=== PATIENT | female | born 1955 | race Caucasian/White ===

== ENCOUNTER 2016-12-02 12:30 | Inpatient (IN) ==
[2016-12-02] MEDS ORDERED: Naloxone 0.4 MG/ML INJ IVP PRN (16:48)
[2016-12-02] MEDS ORDERED: Acetaminophen 325 MG TABLET PO PRN (16:48)
--- NOTE | 2016-12-02 18:01 | Internal Med History&Physical ---
Date of Encounter: 12/02/16 Time of Encounter: 16:15 Assessment and Plan (1) TIA (transient ischemic attack) Current visit: Yes Status: Acute Patient has dizziness, ataxia, left-sided weakness, superior gaze palsy. SHe likely has underlying posterior circulation CVA vs spinal cord lesion. Check stat MRI brain; check bilateral carotid Doppler and 2-D echocardiogram. Continue aspirin and statin. Check lipid profile and hemoglobin A1c. Monitor vital signs closely. Neurology consulted by emergency room physician, pending evaluation. Continue telemetry monitoring and cycle troponins. Physical and occupational therapy evaluation. Qualifiers: Transient cerebral ischemia type: unspecified Qualified Code(s): G45.9 - Transient cerebral ischemic attack, unspecified (2) Essential hypertension Current visit: Yes Status: Chronic Blood pressure well controlled at this time. Resume home medications as needed; (3) Diabetes mellitus Current visit: Yes Status: Chronic Continue Accu-Chek blood glucose monitoring with sliding scale insulin as needed. Diabetic diet. Qualifiers: Diabetes mellitus type: type 2 Diabetes mellitus complication status: with unspecified complications Diabetes mellitus alf insulin use: without alf use Qualified Code(s): E11.8 - Type 2 diabetes mellitus with unspecified complications (4) Hyperlipidemia Current visit: Yes Status: Chronic Continue statin. Check lipid profile. Qualifiers: Hyperlipidemia type: unspecified Qualified Code(s): E78.5 - Hyperlipidemia , unspecified Internal Medicine - H&P: HPI Chief complaint: Dizziness, left-sided weakness Admitted From: Emergency Dept Plans for Post Hospital Care: Transfer Inp Rehab Fac History of present illness: Ms. Ruiz is a 61 year old female with history of hypertension and diabetes, remote history of Meniere's disease presents to emergency room at [facility] with complaints of dizziness for 2 days, worse since waking up this morning around 4: 30 AM. Patient did go to work but gradually also developed right arm pain and paresthesia with numbness and heaviness associated with gait ataxia and worsening dizziness. She subsequently presented to the emergency room where she also developed left-sided weakness in her upper and lower extremities, approximately around 8:30 AM this morning. She reports no headache, blurred vision, dysphagia but she does have intermittent word finding difficulty and is unable to look up in both her eyes. She reports no chest pain, dyspnea, vomiting, diarrhea or abdominal pain but she does have some nausea. No prior episodes of stroke or similar symptoms. Past Med Surg Social Fam HX - Past Medical History Medical history: diabetes, hypertension Psychiatric history: anxiety, depression - Past Surgical History Surgical History: breast surgery, cholecystectomy, hysterectomy - Social History Smoking Status: Never smoker Smokeless Tobacco Status: No Alcohol use: none Drug use: none Occupational status: employed Current living situation: Home, With Family Activity Level: Independent ambulation Recent Out of Country Travel Within the Last 8 Weeks: No Exposure or Possible Exposure to Illness During Travel: No - Family History Mother Living Status: Hx Family Cardiac Disorders: Yes (CHF, HTN) Hx Family Cancer: Yes Hx Family Endocrine Disorder: Yes (DM) Sister Hx Family Cardiac Disorders: Yes Hx Family Cancer: Yes Hx Family Endocrine Disorder: Yes Hx Family Neurologic Disorders: Yes Internal Medicine - H&P: Meds Citalopram [CeleXA] 20 mg PO DAILY #30 tablet 09/05/15 [Rx] Aspirin 81 mg PO DAILY 07/16/16 [History] Atorvastatin [Lipitor] 40 mg PO HS 07/16/16 [History] Lisinopril/Hydrochlorothiazide [Zestoretic 20-12.5 mg Tablet] 2 tab PO DAILY [History] Mv-Mn/FA/Vit K/Lycop/Lut/Coq10 [Daily Multivitamin Capsule] 1 each PO DAILY [History] Omeprazole [PriLOSEC] 20 mg PO DAILY 07/16/16 [History] Pioglitazone [Actos] 45 mg PO 0800 07/16/16 [History] amLODIPine [Norvasc] 5 mg PO DAILY 07/16/16 [History] glipiZIDE [Glipizide] 10 mg PO DAILY 07/16/16 [History] Cholecalciferol (Vitamin D3) [Vitamin D3] 5,000 unit PO BID 12/02/16 [History] [place]-3/Dha/Epa/Fish Oil [Fish Oil 1,000 mg Softgel] 1,000 mg PO DAILY 12/02/16 [History] hydrOXYzine pamoate [HydrOXYzine Pamoate] 25 mg PO DAILY 12/02/16 [History] 3 Allergy/AdvReac Type Severity Reaction Status Date / Time No Known Allergies Allergy Verified 07/16/16 07:42 All Systems PM: A 10-system review of systems was performed and is negative for pertinent findings except as documented above in the HPI. - Constitutional Constitutional: no chills, no fever(s), no night sweats - EENT Eyes: no change in vision, no discharge, no pain, no photophobia Ears: no ear discharge, no ear pain, no tinnitus Nose, mouth and throat: no dysphagia, no nasal discharge, no neck pain, no sore throat - Cardiovascular Cardiovascular ROS IM: lightheadedness - Respiratory Respiratory: no cough, no dyspnea, no wheezing, no excessive phlegm production - Gastrointestinal Gastrointestinal: nausea - Genitourinary Genitourinary: no change in urinary stream, no dysuria, no flank pain, no hematuria - Musculoskeletal Musculoskeletal ROS IM: no numbness, no tingling - Integumentary Integumentary IM: no rash, no unusual bruising - Neurological Neurological ROS: abnormal gait, disequilibrium, dizziness, focal weakness, numbness, paresthesias - Hematologic/Lymphatic Hematologic/Lymphatic: no easy bruising - Constitutional Vitals: Temp Pulse Resp BP Pulse Ox 98.1 F 60 12 146/75 97 12/02/16 14:35 12/02/16 14:35 12/02/16 14:35 12/02/16 14:35 12/02/16 14:35 General appearance: Present: A&O X 3, answers questions appropriately - Eye Eye exam: Present: EOMI (Bilateral superior gaze palsy), PERRL, conjuntiva pink , sclera anicteric Pupils: Present: PERRL - Respiratory Respiratory exam: Present: CTAB. Absent: accessory muscle use, rales, rhonchi, wheezes - Cardiovascular Cardiovascular exam: Present: RRR, +S1, +S2. Absent: diastolic murmur, gallop, rubs, systolic murmur - GI/Abdominal GI/Abdominal exam: Present: normal bowel sounds, soft, no peritoneal signs. Absent: distended, tenderness - Extremities Exam Extremities exam: Present: warm, radial pulses palpable and symmetrical. Absent : calf tenderness, cyanotic, pedal edema - Neurological Exam Neurological exam: Present: abnormal gait, CN II-XII intact, oriented X3, no focal deficits (Left lower extremity 0-1 over 5, left upper extremity 4 over 5 motor power. Right upper extremity 4 over 5, right lower extremity 5 over 5 motor power.). Absent: pronater drift, facial droop, speech deficit Additional comments: Hyperactive knee jerks bilaterally. Hyperactive triceps and biceps reflex on left side. - Skin Skin exam: Present: dry, intact Internal Med - H&P Results - Labs Labs: Cardiac Enzymes 12/02/16 Range/Units 17:09 Troponin I 0.00 (0-0.03) ng/mL - EKG Data -: EKG Interpreted by Myself EKG shows normal: sinus rhythm Rate: normal
[2016-12-02] MEDS ORDERED: *HR* LORazepam 1 MG TABLET PO ONE (18:07)
[2016-12-03 04:01] LABS: Bilirubin,Urine Negative (Negative); Blood,Urine Negative (Negative); Clarity,Urine Clear (Clear); Color,Urine Yellow (Yellow); Glucose,Urine (UA) >=1000 mg/dL (Normal); Ketones,Urine Negative (Negative); Leukocyte Esterase,Urine Negative (Negative); Nitrite,Urine Negative (Negative); Protein,Urine Negative (Neg-Trace); Specific Gravity,Urine 1.026 (1.010-1.025); Urobilinogen,Urine Normal (Normal)
[2016-12-03 05:51] LABS: Basophils # 0.1 K/mcL (0.0-0.2); Basophils % 0.9 %; Eosinophils # 0.4 K/mcL (0.0-0.6); Eosinophils % 5.2 %; Hematocrit 38.8 % (35.3-44.9); Hemoglobin 12.3 g/dL (11.5-15.4); Immature Granulocytes % 0.3 % (0-4); Immature Platelets 3.6 % (1.1-6.1); Lymphocytes # 2.6 K/mcL (0.6-4.6); Lymphocytes % 34.6 %; Mean Corpuscular HGB Conc 31.7 g/dL (31.6-35.5); Mean Corpuscular Hemoglobin 28.9 pg (28.0-33.3); Mean Corpuscular Volume 91.1 fL (83.0-100.0); Mean Platelet Volume 10.5 fL (9.4-12.4); Monocytes # 0.5 K/mcL (0.0-1.3); Monocytes % 7.1 %; Platelet Count 247 K/mcL (140-400); Red Blood Count 4.26 M/mcL (3.82-4.97); Red Cell Distribution Width 13.1 % (11.5-14.5); Segmented Neutrophils % 51.9 %
[2016-12-03 06:06] LABS: BUN/Creatinine Ratio 22 (6-26); Blood Urea Nitrogen 22 mg/dL (7-20); Calcium 9.4 mg/dL (8.6-10.8); Carbon Dioxide 25 mEq/L (19-29); Chloride 103 mEq/L (98-109); Chol/HDL Ratio 4.8 (0-4.9); Cholesterol 206 mg/dL (< 200); Glucose 220 mg/dL (70-99); HDL Cholesterol 43 mg/dL (40-59); LDL Cholesterol,Calculated 107 mg/dL (0-99); Osmolality,Calculated 296 (280-300); Potassium 4.4 mEq/L (3.5-4.5); Sodium 138 mEq/L (136-145); Triglycerides 282 mg/dL (< 150); eGFR For African Americans > 60 (> 60); eGFR For Non-African Americans 56 (> 60)
[2016-12-03] MEDS ORDERED: Lisinopril-HCTZ 20-12.5mg TABLET PO SCH (13:00)
[2016-12-03] MEDS: *HR* Pioglitazone 45 MG TABLET PO SCH (14:35)
[2016-12-03] MEDS: amLODIPine 5 MG TABLET PO SCH (14:35)
[2016-12-03] MEDS: *HR* GlipiZIDE 5 MG TABLET PO SCH (14:35)
--- NOTE | 2016-12-03 14:53 | Carotid Imaging Report ---
Carotid Duplex Patient Name:Courtney Ruiz Order Number:[id number] Procedure Date:12/02/2016 Date:1955ge:61 yrs Gender:Female Lt BP:148 / 80 mmHg Rt.BP:146 / 75 mmHgHeart Rate: Location:[facility] Room #: 2NE30 Gin Operator:Emperatriz Mason RDCS Referring MD:Lexii Maldonado MD gamma facilities operator:None Reading MD:Nick Davis MD Primary Indications:Left side weakness, Dizziness Risk Factors Yes/No Hypertension Yes Diabetes Yes Diabetes Yes Impressions: The right carotid artery is normal throughout. The left carotid artery has minimal plaque throughout. Recommendations: After imaging the patient returned to their room. Findings Carotid Duplex: Right: The right proximal common carotid artery has a PSV of 120 cm/s and a EDV of 23 cm/s. The right mid common carotid artery has a PSV of 106 cm/s and a EDV of 30 cm/s. The right distal common carotid artery has a PSV of 90 cm/s and a EDV of 26 cm/s. The right bifurcation has a PSV of 77 cm/s and a EDV of 24 cm/s. The right proximal internal carotid artery has a PSV of 93 cm/s and a EDV of 37 cm/s. The right mid internal carotid artery has a PSV of 80 cm/s and a EDV of 36 cm/s. The right distal internal carotid artery has a PSV of 122 cm/s and a EDV of 42 cm/s. The right eca has a PSV of 143 cm/s and a EDV of 14 cm/s. The right vertebral artery has a PSV of 71 cm/s and a EDV of 20 cm/s. Left: The left proximal common carotid artery has a PSV of 109 cm/s and a EDV of 22 cm/s. The left mid common carotid artery has a PSV of 97 cm/s and a EDV of 24 cm/s. There is nonstenotic plaque in the left distal common carotid artery with a PSV of 74 cm/s and a EDV of 24 cm/s. There is smooth plaque. The left bifurcation has a PSV of 86 cm/s and a EDV of 21 cm/s. The left proximal internal carotid artery has a PSV of 78 cm/s and a EDV of 21 cm/s. The left mid internal carotid artery has a PSV of 115 cm/s and a EDV of 41 cm/s. The left distal internal carotid artery has a PSV of 124 cm/s and a EDV of 48 cm/s. The left eca has a PSV of 109 cm/s and a EDV of 13 cm/s. The left vertebral artery has a PSV of 77 cm/s and a EDV of 20 cm/s. Prior Study: No prior study available for comparison. Carotid Results Right PSV EDV Assessment Proximal CCA 120 23 Mid CCA 106 30 Distal CCA 90 26 Bifurcation 77 24 Proximal ICA 93 37 Mid ICA 80 36 Distal ICA 122 42 ECA 143 14 Vertebral Artery 71 20 Antegrade Flow Left PSV EDV Assessment Proximal CCA 109 22 Mid CCA 97 24 Distal CCA 74 24 Non Stenotic Plaque Bifurcation 86 21 Proximal ICA 78 21 Mid ICA 115 41 Distal ICA 124 48 ECA 109 13 Vertebral Artery 77 20 Antegrade Flow Ratio's Right ICA/CCA Ratio: 1.15 ICA/CCA Values: 122/106 Left ICA/CCA Ratio: 1.27 ICA/CCA Values: 124/97 Updated by Nick Davis MD on 12/03/2016 2:46:59 PM electronically signed on 12/03/2016 2:47:35 PM with status of Final
--- NOTE | 2016-12-03 15:52 | Internal Med Progress Note ---
Date of Encounter: 12/03/16 Time of Encounter: 15:49 - Assessment and plan (1) Left leg weakness Current Visit: Yes Status: Acute Assessment and plan: She did have Rt arm, Left arm and Left leg weakness y/d Rt arm weakness better today.. Still has mild weakness in Left arm Severe weakness in Left leg MRI of brain - negative for infractions With here presentation I am concerned for any encephalopathy / neuro myelitis - especially with here recent visit to [facility] Ordered LP for CSF analysis Sent for CSF lyme titer, culture, [place] virus, Echo virus, HSV, VDRL, Glucose, Protien and analysis Waiting on Neuro evaluation ID is not available till Tuesday Consulted IR / Radiology for LP Will check ESR and CRP too No signs of meningitis No sings of bacterial infection No need of isolation cont close monitoring cont supportive Patient does need to stay in the hospital more than 2 midnights due to her complex medical problems. So we will change her to full admission today. I did review my colleague's H & P including HPI, PMH, PSH, FH, SH, and ROS no changes noticed (2) Essential hypertension Current Visit: Yes Status: Chronic Assessment and plan: Hold Lisinopril and HCTZ today due to slightly low BP (3) Diabetes mellitus Current Visit: Yes Status: Chronic Assessment and plan: Resumed home medications Qualifiers: Diabetes mellitus type: type 2 Diabetes mellitus complication status: with unspecified complications Diabetes mellitus detention insulin use: without detention use Qualified Code(s): E11.8 - Type 2 diabetes mellitus with unspecified complications (4) Hyperlipidemia Current Visit: Yes Status: Chronic Assessment and plan: on statin Qualifiers: Hyperlipidemia type: unspecified Qualified Code(s): E78.5 - Hyperlipidemia , unspecified - Subjective Interval history: Ms. Ruiz is a 61 year old female with history of hypertension and diabetes, remote history of Meniere's disease presents to emergency room at [facility] with complaints of dizziness for 2 days, worse since waking up this morning around 4: 30 AM. Patient did go to work but gradually also developed right arm pain and paresthesia with numbness and heaviness associated with gait ataxia and worsening dizziness. She subsequently presented to the emergency room where she also developed left-sided weakness in her upper and lower extremities, approximately around 8:30 AM this morning. She reports no headache, blurred vision, dysphagia but she does have intermittent word finding difficulty. Now she is more alert, awake and O x 3. Denied any CP / SOB. Denied any Abd pain , no nausea / vomiting. No speech difficulty. Still has severe left leg weakness. Unable to move. She did mention that she went to [employer] a week ago, while she was there, she had 2 days of severe SOB, but denied any bug bites / rash. - Constitutional Vitals: Temp Pulse Resp BP Pulse Ox 98.1 F 73 17 120/54 98 12/03/16 12:00 12/03/16 14:37 12/03/16 12:00 12/03/16 14:37 12/03/16 12:00 General appearance: Present: A&O X 3, answers questions appropriately - Head Head exam: Present: atraumatic, normal inspection - Neck Neck exam general surgery: Present: full ROM, normal inspection, supple. Absent : lymphadenopathy, tenderness, nuchal rigidity - Respiratory Respiratory exam: Present: CTAB. Absent: accessory muscle use, rales, rhonchi, wheezes - Cardiovascular Cardiovascular exam: Present: RRR, +S1, +S2. Absent: diastolic murmur, gallop, rubs, systolic murmur - GI/Abdominal GI/Abdominal exam: Present: normal bowel sounds, soft. Absent: rebound, rigid, tenderness - Extremities Exam Extremities exam: Absent: calf tenderness, pedal edema, tenderness - Neurological Exam Neurological exam: Present: abnormal gait, alert, CN II-XII intact, motor sensory deficit, oriented X3, pronater drift (left leg). Absent: facial droop, speech deficit - Psychiatric Psychiatric exam: Present: normal affect, normal mood Internal Medicine: Result - Labs CBC & Chem 7: 12/03/16 05:43 12/03/16 05:43 Labs: Short CBC 12/03/16 Range/Units 05:43 WBC 7.6 (4.3-11.1) K/mcL Hgb 12.3 (11.5-15.4) g/dL Hct 38.8 (35.3-44.9) % Plt Count 247 (140-400) K/mcL Neutrophils # 4.0 (1.6-8.9) K/mcL BMP 12/03/16 05:43 Sodium 138 Potassium 4.4 Chloride 103 Carbon Dioxide 25 BUN 22 H Creatinine 1.01 Glucose 220 H Calcium 9.4 Cardiac Enzymes 12/02/16 12/02/16 12/03/16 Range/Units 17:09 23:41 05:43 Troponin I 0.00 0.00 0.01 (0-0.03) ng/mL Urine 12/03/16 Range/Units 03:50 Urine Color Yellow (Yellow) Urine Clarity Clear (Clear) Urine pH 6.0 (5.0-8.0) pH Units Ur Specific [place] 1.026 H (1.010-1.025) Urine Protein Negative (Neg-Trace) mg/dL Urine Glucose (UA) >=1000 H (Normal) mg/dL - Impressions Impressions Brain MRI 12/02/16 16:51 IMPRESSION: No acute infarct. D/ / Jaylan Smith MD / Jaylan Smith MD Interpreting Provider: Jaylan Smith MD - VTE Documentation of Mechanical Device: Intermittent pneumatic compression device Consult Discharge Plan - Plan Referrals: NONE,PCP [Primary Care Provider] -
--- NOTE | 2016-12-03 15:56 | Electrocardiograph Report ---
[place] [id number] Test Date: 2016-12-02 Pat Name: Courtney Ruiz Department: 111 Room: [facility] Gender: F Web Publisher: ISMA : 1955 Requested By: Rocky العلي Order Number: [id number] Reading MD: Bre Guzmán Measurements Intervals [place] Rate: 65 P: -19 [place]: 165 QRS: 48 QRSD: 120 T: 37 QT: 431 QTc: 442 Interpretive Statements SINUS RHYTHM MODERATE INTRAVENTRICULAR CONDUCTION DELAY Electronically Signed On 12-03-2016 15:54:43 EDT by Bre Guzmán
[2016-12-03 17:05] LABS: Prothrombin Time 10.2 Seconds (9.4-12.1)
--- NOTE | 2016-12-03 17:54 | Neurology - Consult Note ---
Date of Encounter: 12/03/16 Time of Encounter: 17:50 Assessment and Plan (1) TIA (transient ischemic attack) Current Visit: Yes Status: Acute 61 year old woman with HTN, DM, hyperlipidemia who developed acute onset of dizziness right arm paresthesia, then left sided weakness with rapid improvement but with still left sided residual weakness, negative MRI of brain for acute stroke. Likely related to new onset of focal neurological deficits secondary to elevated BP, or hyperglycemia. However, the presence of continued left leg weakness is difficult to explain and it is not associated with any lumbar radicular type of pain. The examination of left leg weakness showed some functional component in my opinion but due to the fact that she has long standing DM and yet her DTRs are brisk, it would be necessary to get MRI of cervical spine to assess possible cervical myelopathy with long tract involvement. Agree with TIA work up including Echo, carotid artery dupplex. Continue medical and supportive care. Qualifiers: Transient cerebral ischemia type: unspecified Qualified Code(s): G45.9 - Transient cerebral ischemic attack, unspecified History of Present Illness Chief complaint: dizzness, left sided weakness HPI: Ms. Ruiz is a 61 year old female with PMH significant for DM, HTN, obesity, hyperlipidemia, who developed acute onset of dizziness, and left sided weakness. Symptoms started yesterday when she woke up she felt dizzy, never had similar symptoms in the past. She managed to go to work and there she developed right arm numbness, and then the left arm and leg felt numb and heavy. The dizziness slowly resolved today, so as the right arm numbness but she still has left sided weakness. She was initially evaluated at [facility] and transferred here for further evaluation. Her BP was elevated at [facility] 180s/97. She denies headaches, no fever and no neck pain. Has some chronic urinary urgency. Past Med Surg Social Fam HX - Past Medical History Medical history: diabetes, hypertension Psychiatric history: anxiety, depression - Past Surgical History Surgical History: breast surgery, cholecystectomy, hysterectomy - Social History Smoking Status: Never smoker Smokeless Tobacco Status: No Alcohol use: none Drug use: none - Family History Mother Living Status: Hx Family Cardiac Disorders: Yes (CHF, HTN) Hx Family Cancer: Yes Hx Family Endocrine Disorder: Yes (DM) Sister Hx Family Cardiac Disorders: Yes Hx Family Cancer: Yes Hx Family Endocrine Disorder: Yes Hx Family Neurologic Disorders: Yes Medications and Allergies Citalopram [CeleXA] 20 mg PO DAILY #30 tablet 09/05/15 [Rx] Aspirin 81 mg PO DAILY 07/16/16 [History] Atorvastatin [Lipitor] 40 mg PO HS 07/16/16 [History] Lisinopril/Hydrochlorothiazide [Zestoretic 20-12.5 mg Tablet] 2 tab PO DAILY [History] Mv-Mn/FA/Vit K/Lycop/Lut/Coq10 [Daily Multivitamin Capsule] 1 each PO DAILY [History] Omeprazole [PriLOSEC] 20 mg PO DAILY 07/16/16 [History] Pioglitazone [Actos] 45 mg PO 0800 07/16/16 [History] amLODIPine [Norvasc] 5 mg PO DAILY 07/16/16 [History] glipiZIDE [Glipizide] 10 mg PO DAILY 07/16/16 [History] Cholecalciferol (Vitamin D3) [Vitamin D3] 5,000 unit PO BID 12/02/16 [History] [place]-3/Dha/Epa/Fish Oil [Fish Oil 1,000 mg Softgel] 1,000 mg PO DAILY 12/02/16 [History] hydrOXYzine pamoate [HydrOXYzine Pamoate] 25 mg PO DAILY 12/02/16 [History] 3 Allergy/AdvReac Type Severity Reaction Status Date / Time No Known Allergies Allergy Verified 07/16/16 07:42 All Systems: A 10-system review of systems was performed and is negative for pertinent findings except as documented above in the HPI. Physical Examination - Vital Signs Vital Signs: Initial Vital Signs Temp Pulse Resp BP Pulse Ox 98.1 F 60 12 146/75 97 12/02/16 14:35 12/02/16 14:35 12/02/16 14:35 12/02/16 14:35 12/02/16 14:35 - Constitutional General appearance: comfortable - Neurologic Sensorimotor examination: intact Detailed motor examination: other (No drift noted to her arms. Left leg is weak but examination of her leg strength NOT Reliable. She would not be able to lift the leg up whole lot but able to keep if just off the bed with significant stiffness, when trying to lift her left leg up she pushes it downward) Motor examination - right side: 5/5: deltoids, biceps, triceps, wrist flexion, wrist extension, sheet folder, hip flexors, tibialis Anterior, quadriceps, toe extension (EHL), plantarflexion Motor examination - left side: 4/5: hip flexors (not reliable), quadriceps, tibialis Anterior, toe extension (EHL), plantarflexion, 5/5: deltoids, biceps, triceps, wrist flexion, wrist extension, sheet folder Detailed sensory examination: intact Posture: other (None. No nuchal rigidity) Reflexes: Biceps: 3+, Triceps: 3+, Brachioradialis: 3+, Patella: 3+, Achilles: 0 Mental Status Examination: awake, alert, oriented to person, oriented to place, oriented to time, follows commands appropriately, answers questions appropriately, no agnosia, no aphasia, no aproxia Cranial nerve examination: PERRL, EOMI, visual navarrete intact, corneal reflexes brisk symmetrically, sensory to face intact, mastication intact, no facial asymmetry is present, no dysarthria, hearing is intact symmetrically, soft palate elevates bilaterally upon phonation, gag reflex intact, flexes SCM and trapezius muscles symmetrically with full power, tongue protrudes midline, no atrophy or facial fasiculations present Results - Laboratory Findings CBC and BMP: 12/03/16 05:43 12/03/16 05:43 Abnormal lab findings: Abnormal lab results ESR 32 mm/hr (0-15) H 12/03/16 16:43 BUN 22 mg/dL (7-20) H 12/03/16 05:43 Est GFR (Non-Af Amer) 56 (> 60) L 12/03/16 05:43 Glucose 220 mg/dL (70-99) H 12/03/16 05:43 POC Glucose 300 (58-89) H 12/03/16 16:25 C-Reactive Protein 8 mg/L (Less than 5) H 12/03/16 16:43 Triglycerides 282 mg/dL (< 150) H 12/03/16 05:43 Cholesterol 206 mg/dL (< 200) H 12/03/16 05:43 LDL Cholesterol, Calc 107 mg/dL (0-99) H 12/03/16 05:43 VLDL Cholesterol, Calc 56 mg/dL (< 31) H 12/03/16 05:43 Ur Specific [place] 1.026 (1.010-1.025) H 12/03/16 03:50 Urine Glucose (UA) >=1000 mg/dL (Normal) H 12/03/16 03:50 Consult Discharge Plan - Plan Referrals: NONE,PCP [Primary Care Provider] -
[2016-12-03] MEDS: (Omega-3/Dha/Epa/Fish Oil [Fish Oil 1,000 Mg Softgel] PO SCH (18:34)
[2016-12-03] MEDS: Cholecalciferol (D-3) 1,000 UNIT TABLET PO SCH (22:35)
[2016-12-04] MEDS ORDERED: Aspirin 81 MG TAB.CHEW PO SCH (09:00)
[2016-12-04] MEDS: amLODIPine 5 MG TABLET PO SCH (09:16)
[2016-12-04] MEDS: (Omega-3/Dha/Epa/Fish Oil [Fish Oil 1,000 Mg Softgel] PO SCH (09:16)
[2016-12-04] MEDS: *HR* GlipiZIDE 5 MG TABLET PO SCH (09:16)
[2016-12-04] MEDS: Multivit/Ca/Min/Fe/FA 1 TAB TABLET PO SCH (09:16)
[2016-12-04] MEDS: Cholecalciferol (D-3) 1,000 UNIT TABLET PO SCH (09:16)
[2016-12-04] MEDS: *HR* Pioglitazone 45 MG TABLET PO SCH (09:18)
--- NOTE | 2016-12-04 12:36 | Internal Med Progress Note ---
Date of Encounter: 12/04/16 Time of Encounter: 12:14 - Assessment and plan (1) Left leg weakness Current Visit: Yes Status: Acute Assessment and plan: Improved weakness in Rt arm, Left arm However still has severe weakness in Left leg MRI of brain - negative for infractions MRI of Cervical spine - multi level degenerative changes, congenital narrow canal..mild spinal canal stenosis C3-4,C4-5 Multi level neural foraminal narrowing including severe Rt neural foraminal stenosis Will consult surgery Dr. Davila for further evaluation ESR -32, CRP -8 Unable to do LP y/d since she recieved ASA and Plavix 2 days ago Will hold LP till Tuesday, as well as until Surgery eval If her Left leg motor strength improves.. 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 Ruiz is a 61 year old female with history of hypertension and diabetes, remote history of Meniere's disease presents to emergency room at [facility] with complaints of dizziness for 2 days, worse since waking up this morning around 4: 30 AM. Patient did go to work but gradually also developed right arm pain and paresthesia with numbness and heaviness associated with gait ataxia and worsening dizziness. She subsequently presented to the emergency room where she also developed left-sided weakness in her upper and lower extremities, approximately around 8:30 AM on 12/02/16. She reports no headache, blurred vision, dysphagia but she does have intermittent word finding difficulty. She did mention that she went to [employer] a week ago, while she was there, she had 2 days of severe SOB, but denied any bug, tick bites / rash. Now she is more alert, awake and O x 3. Denied any CP / SOB. Denied any Abd pain , no nausea / vomiting. No speech difficulty. Still has severe left leg weakness. Unable to move. - Constitutional Vitals: Temp Pulse Resp BP Pulse Ox 98.3 F 73 10 121/67 95 12/04/16 11:29 12/04/16 11:29 12/04/16 11:29 12/04/16 11:29 12/04/16 11:29 General appearance: Present: A&O X 3, answers questions appropriately - Head Head exam: Present: atraumatic, normal inspection - Respiratory Respiratory exam: Present: decreased breath sounds. Absent: rales, respiratory distress, rhonchi, wheezes - Cardiovascular Cardiovascular exam: Present: RRR, +S1, +S2. Absent: diastolic murmur, gallop, rubs, systolic murmur - GI/Abdominal GI/Abdominal exam: Present: normal bowel sounds, soft, no peritoneal signs. Absent: distended, tenderness - Extremities Exam Extremities exam: Absent: calf tenderness, pedal edema, tenderness - Neurological Exam Neurological exam: Present: abnormal gait, alert, CN II-XII intact, motor sensory deficit (Severe Left leg weakness - motor deficit only..No loss of sensation), oriented X3, pronater drift (left leg). Absent: strengths equal and symetr throughout, facial droop, speech deficit - Psychiatric Psychiatric exam: Present: normal affect, normal mood Internal Medicine: Result - Labs CBC & Chem 7: 12/03/16 05:43 12/03/16 05:43 - ABG Interpretation ABG results: PT/INR, D-dimer PT 10.2 Seconds (9.4-12.1) 12/03/16 16:43 - Impressions Impressions Cervical Spine MRI 12/03/16 18:05 IMPRESSION: Multilevel degenerative changes of the cervical spine, superimposed on a congenitally narrow canal. There is mild spinal canal stenosis at C3-C4 and C4-C5. Multilevel neural foraminal narrowing, including severe right neural foraminal stenosis at C4-C5. D/ / 12/03/2016 19:42:31 Owen Lozano MD / felix Interpreting Provider: Owen Lozano MD - VTE Documentation of Mechanical Device: Intermittent pneumatic compression device Consult Discharge Plan - Plan Referrals: NONE,PCP [Primary Care Provider] -
[2016-12-04] MEDS ORDERED: Dextrose Gel 15 GM PO PRN ×2 (12:59)
[2016-12-04] MEDS ORDERED: D5% in Water 1,000 ML IVC PRN (12:59)
[2016-12-04] MEDS ORDERED: *HR* Dextrose 50 % in Water (Syg) 50 ML SYRINGE IVP PRN (12:59)
--- NOTE | 2016-12-04 13:23 | Neurology Progress Note ---
Date of Encounter: 12/04/16 Time of Encounter: 13:20 Assessment and Plan (1) Left leg weakness Current Visit: Yes Status: Acute Patient has developed acute onset of dizziness for two days with total resolution, multiple distribution of paresthesia involving the right arm, left arm and leg and left sided weakness, leg more than arm. Left arm symptoms totally resolved but left leg foot weakness have persisted. neurological examination showed mainly left foot and leg weakness plus paresthesia, with preservation of DTRs. MRI of brain and cervical spinal cord showed no acute pathology. Overall speaking symptoms can not be explained by COOKING SHOW HOST pathology. The left leg weakness and paresthesia are not associated with radicular type of pain and weakness is both proximal and distal. 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 function component can not be totally excluded. Family members are concerned with possible tick bite but there is no skin rashes and no other common symptoms that occur with tick borne disease but will check lyme's titer. Currently no symptoms of encephalitis, meningitis or typical myelitis, which usually cause bilateral long tract symptoms. Will also order MRI of lumbar spine to complete the work up. patient needs PT/OT. Subjective Principal diagnosis: left leg weakness Interval history: Patient seen and examined. She states that the left leg is 'tad' better and relates that her left leg weakness is indeed better. She is able to use a walker to walk. When walking with a walker, she appears to have steppage gait to the left side, Has also numbness to the left foot and leg, up to around her mid thigh but she denies any pain. No other neurological deficits. Says that left arm is back to normal, right arm is still slightly numb. MRI of cervical spine showed no spinal cord abnormality, although mild disc disease is reported. Objective - Constitutional Vitals: Temp Pulse Resp BP Pulse Ox 98.3 F 73 10 121/67 95 12/04/16 11:29 12/04/16 11:29 12/04/16 11:29 12/04/16 11:29 12/04/16 11:29 - Neurological Exam Sensorimotor examination: Present: other (showed reduced pinprick to the left foot and leg up to the mid thigh involving the whole leg) Motor Examination: Present: other (No drift noted to her arms. Left leg is weak but examination of her leg strength NOT Reliable. 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 No nuchal rigidity) Reflex and gait examination: other (Is able to walk with a walker, Gait pattern shows steppage gait to the left side, weakness appears proximal) Reflexes: Biceps: 2+, Triceps: 2+, Brachioradialis: 2+, Patella: 2+, Achilles: 1 + Mental Status Examination: Present: awake, alert, oriented to person, oriented to place, oriented to time, follows commands appropriately, answers questions appropriately, no agnosia, no aphasia, no aproxia Cranial nerve examination: Present: PERRL, EOMI, visual navarrete intact, corneal reflexes brisk symmetrically, sensory to face intact, mastication intact, no facial asymmetry is present, no dysarthria, hearing is intact symmetrically, soft palate elevates bilaterally upon phonation, gag reflex intact, flexes SCM and trapezius muscles symmetrically with full power, tongue protrudes midline, no atrophy or facial fasiculations present - VTE Documentation of Mechanical Device: Intermittent pneumatic compression device Results - Laboratory Findings CBC and BMP: 12/03/16 05:43 12/03/16 05:43 Abnormal lab findings: Abnormal lab results ESR 32 mm/hr (0-15) H 12/03/16 16:43 BUN 22 mg/dL (7-20) H 12/03/16 05:43 Est GFR (Non-Af Amer) 56 (> 60) L 12/03/16 05:43 Glucose 220 mg/dL (70-99) H 12/03/16 05:43 POC Glucose 300 (58-89) H 12/03/16 16:25 C-Reactive Protein 8 mg/L (Less than 5) H 12/03/16 16:43 Triglycerides 282 mg/dL (< 150) H 12/03/16 05:43 Cholesterol 206 mg/dL (< 200) H 12/03/16 05:43 LDL Cholesterol, Calc 107 mg/dL (0-99) H 12/03/16 05:43 VLDL Cholesterol, Calc 56 mg/dL (< 31) H 12/03/16 05:43 Ur Specific [place] 1.026 (1.010-1.025) H 12/03/16 03:50 Urine Glucose (UA) >=1000 mg/dL (Normal) H 12/03/16 03:50 Consult Discharge Plan - Plan Referrals: NONE,PCP [Primary Care Provider] -
[2016-12-04] MEDS: Insulin LISPRO 300 UNITS/3 ML VIAL SQ SCH ×2 (13:35→16:53)
[2016-12-05] MEDS: Cholecalciferol (D-3) 1,000 UNIT TABLET PO SCH (07:59)
[2016-12-05] MEDS: Multivit/Ca/Min/Fe/FA 1 TAB TABLET PO SCH (07:59)
[2016-12-05] MEDS: amLODIPine 5 MG TABLET PO SCH (07:59)
[2016-12-05] MEDS: *HR* GlipiZIDE 5 MG TABLET PO SCH (08:00)
[2016-12-05] MEDS: (Omega-3/Dha/Epa/Fish Oil [Fish Oil 1,000 Mg Softgel] PO SCH (08:00)
[2016-12-05] MEDS: *HR* Pioglitazone 45 MG TABLET PO SCH (08:02)
[2016-12-05] MEDS: Insulin LISPRO 300 UNITS/3 ML VIAL SQ SCH ×3 (08:03→16:43)
--- NOTE | 2016-12-05 11:29 | Internal Med Progress Note ---
Date of Encounter: 12/05/16 Time of Encounter: 11:24 - Assessment and plan (1) Left leg weakness Current Visit: Yes Status: Acute Assessment and plan: Resolved weakness in Rt arm, Left arm Dramatically improving weakness in Left leg MRI of brain - negative for infractions MRI of Cervical spine - multi level degenerative changes, congenital narrow canal..mild spinal canal stenosis C3-4,C4-5 Multi level neural foraminal narrowing including severe Rt neural foraminal stenosis MRI of Thorasic and Lumbar : showed heterogeneous areas decreases signal intensity in T1 and T2, L3 and L4 vertebral bodies. May represent lipid poor hemangiomas. Concerning for metastatic disease vs myeloma.. will talk to Neuro about further work up --such as bone scan Consulted surgery Dr. Davila for further evaluation ESR -32, CRP -8 Unable to do LP since she recieved ASA and Plavix 2 days ago Will hold LP till Tuesday, as well as until Surgery eval If her Left leg motor strength improves.. may not need LP No signs of meningitis No sings of bacterial infection No need of isolation cont close monitoring cont supportive (2) Essential hypertension Current Visit: Yes Status: Chronic Assessment and plan: stable..resumed home meds (3) Diabetes mellitus Current Visit: Yes Status: Chronic Assessment and plan: Resumed home medications HbA1C 12.0 Cont ISS + will add levemir Qualifiers: Diabetes mellitus type: type 2 Diabetes mellitus complication status: with unspecified complications Diabetes mellitus fdc insulin use: without fdc use Qualified Code(s): E11.8 - Type 2 diabetes mellitus with unspecified complications (4) Hyperlipidemia Current Visit: Yes Status: Chronic Assessment and plan: reviewed FLP on statin Qualifiers: Hyperlipidemia type: unspecified Qualified Code(s): E78.5 - Hyperlipidemia , unspecified - Subjective Interval history: Ms. Ruiz is a 61 year old female with history of hypertension and diabetes, remote history of Meniere's disease presents to emergency room at [facility] with complaints of dizziness for 2 days, worse since waking up this morning around 4: 30 AM. Patient did go to work but gradually also developed right arm pain and paresthesia with numbness and heaviness associated with gait ataxia and worsening dizziness. She subsequently presented to the emergency room where she also developed left-sided weakness in her upper and lower extremities, approximately around 8:30 AM on 12/02/16. She reports no headache, blurred vision, dysphagia but she does have intermittent word finding difficulty. She did mention that she went to [employer] [place] a week ago, while she was there, she had 2 days of severe SOB, but denied any bug, tick bites / rash. Now she is more alert, awake and O x 3. Denied any CP / SOB. Denied any Abd pain , no nausea / vomiting. No speech difficulty. Still has left leg weakness, but much better today, able to move. - Constitutional Vitals: Temp Pulse Resp BP Pulse Ox 98.0 F 68 10 126/59 96 12/05/16 07:14 12/05/16 07:14 12/05/16 07:14 12/05/16 07:14 12/05/16 07:14 General appearance: Present: A&O X 3, answers questions appropriately - Head Head exam: Present: atraumatic, normal inspection - Respiratory Respiratory exam: Present: CTAB. Absent: rales, respiratory distress, rhonchi, wheezes - Cardiovascular Cardiovascular exam: Present: RRR, +S1, +S2. Absent: diastolic murmur, gallop, rubs, systolic murmur - GI/Abdominal GI/Abdominal exam: Present: normal bowel sounds, soft, no peritoneal signs. Absent: distended, tenderness - Extremities Exam Extremities exam: Absent: calf tenderness, pedal edema, tenderness - Neurological Exam Neurological exam: Present: abnormal gait, alert, CN II-XII intact, motor sensory deficit, oriented X3, pronater drift (left leg). Absent: facial droop, speech deficit - Psychiatric Psychiatric exam: Present: normal affect, normal mood Internal Medicine: Result - Labs CBC & Chem 7: 12/03/16 05:43 12/03/16 05:43 - ABG Interpretation ABG results: PT/INR, D-dimer PT 10.2 Seconds (9.4-12.1) 12/03/16 16:43 - Impressions Impressions Lumbar Spine MRI 12/04/16 13:39 IMPRESSION: 1. Heterogeneous areas of decreased T1 and T2 signal intensity within the L3 and L4 vertebral bodies. These may represent lipid poor hemangiomas. However nuclear medicine whole-body bone scan is suggested for further evaluation as metastatic disease or myeloma could have this appearance. 2. Mild degenerative changes of the lumbar spine without findings to explain the patient's left lower extremity paralysis. 3. Mild bilateral neural foraminal narrowing at L3-4 and mild left neural foraminal narrowing at L4-5, as described above. D/ / 12/04/2016 15:41:39 Regan Andrade MD / Kathleen Mccurdy Interpreting Provider: Regan Andrade MD - VTE Documentation of Mechanical Device: Intermittent pneumatic compression device Consult Discharge Plan - Plan Referrals: NONE,PCP [Primary Care Provider] -
--- NOTE | 2016-12-05 12:28 | Neurology Progress Note ---
Date of Encounter: 12/05/16 Time of Encounter: 12:25 Assessment and Plan (1) Left leg weakness Current Visit: Yes Status: Acute Symptoms totally resolved. Etiology unclear. Course of disease, progression and recovery atypical from neurological point of view. in my opinion a function component can not be excluded. The presence of L3-L4 vertebral body heterogenous signal changes is likely an incidental finding and bears no relationship with her present illness. Will defer this to Ortho whether bone scan is indeed needed, or oncology may be consulted. Subjective Principal diagnosis: left leg weakness Interval history: Patient seen and examined. She is doing better. She woke up this morning and her left left weakness essentially resolved. She is back to her baseline. Able to walk on her own without assistance although she is little cautious when walking No discomforts reported. MRI of lumbar spine report reviewed. No pathology exists to explain her clinical symptoms. Incidental findings of signal abnormalities on vertebral body L3-L4 noted, may be related to vertebral hemangioma, and radiology suggested nuclear bone scan due to myeloma and bone metastasis can give similar pattern. Objective - Constitutional Vitals: Temp Pulse Resp BP Pulse Ox 98.1 F 80 12 115/61 96 12/05/16 11:29 12/05/16 11:29 12/05/16 11:29 12/05/16 11:29 12/05/16 11:29 - Neurological Exam Sensorimotor examination: Present: intact, other (showed reduced pinprick to the left foot and leg up to the mid thigh involving the whole leg) Motor Examination: Present: grossly full strength in all extremities, other (No drift noted to her arms. Left leg is weak but examination of her leg strength NOT Reliable. She would not be able to lift the leg up whole lot but able to keep if just off the bed with significant stiffness, when trying to lift her left leg up she pushes it downward) Motor examination - right side: 5/5: deltoids, biceps, triceps, wrist flexion, wrist extension, customer care agent, hip flexors, tibialis Anterior, quadriceps, toe extension (EHL), plantarflexion Motor examination - left side: 4/5: hip flexors (not reliable), quadriceps, tibialis Anterior, toe extension (EHL), plantarflexion, 5/5: deltoids, biceps, triceps, wrist flexion, wrist extension, customer care agent Sensation intact: Present: intact, other Posture: Present: other (NOne) Reflex and gait examination: other (Is able to walk with a walker, Gait pattern shows steppage gait to the left side, weakness appears proximal) Reflexes: Biceps: 2+, Triceps: 2+, Brachioradialis: 2+, Patella: 2+, Achilles: 2 + Mental Status Examination: Present: awake, alert, oriented to person, oriented to place, oriented to time, follows commands appropriately, answers questions appropriately, no agnosia, no aphasia, no aproxia Cranial nerve examination: Present: PERRL, EOMI, visual navarrete intact, corneal reflexes brisk symmetrically, sensory to face intact, mastication intact, no facial asymmetry is present, no dysarthria, hearing is intact symmetrically, soft palate elevates bilaterally upon phonation, gag reflex intact, flexes SCM and trapezius muscles symmetrically with full power, tongue protrudes midline, no atrophy or facial fasiculations present - VTE Documentation of Mechanical Device: Intermittent pneumatic compression device Results - Laboratory Findings CBC and BMP: 12/03/16 05:43 12/03/16 05:43 Abnormal lab findings: Abnormal lab results ESR 32 mm/hr (0-15) H 12/03/16 16:43 BUN 22 mg/dL (7-20) H 12/03/16 05:43 Est GFR (Non-Af Amer) 56 (> 60) L 12/03/16 05:43 Glucose 220 mg/dL (70-99) H 12/03/16 05:43 POC Glucose 221 (58-89) H 12/04/16 19:30 Hemoglobin A1c 12.0 % (-5.6) H 12/05/16 05:07 C-Reactive Protein 8 mg/L (Less than 5) H 12/03/16 16:43 Triglycerides 282 mg/dL (< 150) H 12/03/16 05:43 Cholesterol 206 mg/dL (< 200) H 12/03/16 05:43 LDL Cholesterol, Calc 107 mg/dL (0-99) H 12/03/16 05:43 VLDL Cholesterol, Calc 56 mg/dL (< 31) H 12/03/16 05:43 Ur Specific [place] 1.026 (1.010-1.025) H 12/03/16 03:50 Urine Glucose (UA) >=1000 mg/dL (Normal) H 12/03/16 03:50 Consult Discharge Plan - Plan Referrals: NONE,PCP [Primary Care Provider] -
[2016-12-05] MEDS: Insulin DETEMIR 100 UNIT/ML X5UNITS SQ SCH (20:32)
[2016-12-06] MEDS: *HR* GlipiZIDE 5 MG TABLET PO SCH (10:16)
[2016-12-06] MEDS: Multivit/Ca/Min/Fe/FA 1 TAB TABLET PO SCH (10:16)
[2016-12-06] MEDS: *HR* Pioglitazone 45 MG TABLET PO SCH (10:16)
[2016-12-06] MEDS: Cholecalciferol (D-3) 1,000 UNIT TABLET PO SCH (10:16)
[2016-12-06] MEDS: amLODIPine 5 MG TABLET PO SCH (10:16)
[2016-12-06] MEDS: (Omega-3/Dha/Epa/Fish Oil [Fish Oil 1,000 Mg Softgel] PO SCH (10:17)
[2016-12-06] MEDS: Insulin DETEMIR 100 UNIT/ML X5UNITS SQ SCH (10:18)
[2016-12-06] MEDS: Insulin LISPRO 300 UNITS/3 ML VIAL SQ SCH ×2 (10:19→12:56)
--- NOTE | 2016-12-06 11:40 | Spinal Consult Note ---
Date of Encounter: 12/06/16 Time of Encounter: 11:36 Assessment and Plan (1) Foraminal stenosis of cervical region Current Visit: Yes Status: Chronic On exam she is pleasant alert and cooperative. Afebrile vital signs stable. She has a normal gait pattern. She has 5 out of 5 strength in all upper and lower extremity motor groups. She has a negative Santa sign. She has no clonus. MRI of the cervical spine reveals some moderate foraminal stenosis on the right at C4-5. There is multilevel degenerative changes. MRI of the lumbar spine reveals mild multilevel degenerative changes. There is no significant stenosis. There is focal low density signals at L3 and L4 which may were represent lipid poor hemangiomas versus multiple myeloma versus metastatic disease. Impression: 1) Cervical foraminal stenosis 2) Resolving left upper and lower extremity weakness 3) probable hemangiomas L3 and L4 Plan: I see no clear spinal etiology for her weakness. Fortunately, her weakness is resolving and I would only recommend outpatient physical therapy for gait training and lower extremity strengthening. With regard to her findings at L3 and L4, it may be reasonable to obtain a bone scan and SPEP to evaluate the differential. There is no role for surgical intervention. I am in agreement with findings from the neurologic consultation. History of Present Illness Chief complaint: Left arm and left leg weakness HPI: Ms. Ruiz is a 61 year old female Who complains of an acute onset of left arm and left leg weakness several days ago. where she could "hardly move" which necessitated a visit to the emergency department. She was admitted for evaluation of the symptomatology with presumed TIA. In the interim since her hospitalization her left arm weakness has resolved. She is now ambulating but states she still has some left leg weakness. Neurologic consultation by Dr. Laura Muniz has been negative for clear neurologic etiology and includes brain, cervical and lumbar MRIs. We are asked to see regarding spinal etiology for her weakness. She denies fevers, chills, photophobia, pain or radicular symptoms. Denies any bowel bladder symptomatology. Past Med Surg Social Fam HX - Past Medical History Medical history: diabetes, hypertension Psychiatric history: anxiety, depression - Past Surgical History Surgical History: breast surgery, cholecystectomy, hysterectomy - Social History Smoking Status: Never smoker Smokeless Tobacco Status: No Alcohol use: none Drug use: none - Family History Mother Living Status: Hx Family Cardiac Disorders: Yes (CHF, HTN) Hx Family Cancer: Yes Hx Family Endocrine Disorder: Yes (DM) Sister Hx Family Cardiac Disorders: Yes Hx Family Cancer: Yes Hx Family Endocrine Disorder: Yes Hx Family Neurologic Disorders: Yes Medications and Allergies Citalopram [CeleXA] 20 mg PO DAILY #30 tablet 09/05/15 [Rx] Aspirin 81 mg PO DAILY 07/16/16 [History] Atorvastatin [Lipitor] 40 mg PO HS 07/16/16 [History] Lisinopril/Hydrochlorothiazide [Zestoretic 20-12.5 mg Tablet] 2 tab PO DAILY [History] Mv-Mn/FA/Vit K/Lycop/Lut/Coq10 [Daily Multivitamin Capsule] 1 each PO DAILY [History] Omeprazole [PriLOSEC] 20 mg PO DAILY 07/16/16 [History] Pioglitazone [Actos] 45 mg PO 0800 07/16/16 [History] amLODIPine [Norvasc] 5 mg PO DAILY 07/16/16 [History] glipiZIDE [Glipizide] 10 mg PO DAILY 07/16/16 [History] Cholecalciferol (Vitamin D3) [Vitamin D3] 5,000 unit PO BID 12/02/16 [History] [place]-3/Dha/Epa/Fish Oil [Fish Oil 1,000 mg Softgel] 1,000 mg PO DAILY 12/02/16 [History] hydrOXYzine pamoate [HydrOXYzine Pamoate] 25 mg PO DAILY 12/02/16 [History] 3 Allergy/AdvReac Type Severity Reaction Status Date / Time No Known Allergies Allergy Verified 07/16/16 07:42 Results - Labs Result Diagrams: 12/03/16 05:43 12/03/16 05:43 Labs: Abnormal lab results ESR 32 mm/hr (0-15) H 12/03/16 16:43 BUN 22 mg/dL (7-20) H 12/03/16 05:43 Est GFR (Non-Af Amer) 56 (> 60) L 12/03/16 05:43 Glucose 220 mg/dL (70-99) H 12/03/16 05:43 POC Glucose 215 (58-89) H 12/05/16 20:26 Hemoglobin A1c 12.0 % (-5.6) H 12/05/16 05:07 C-Reactive Protein 8 mg/L (Less than 5) H 12/03/16 16:43 Triglycerides 282 mg/dL (< 150) H 12/03/16 05:43 Cholesterol 206 mg/dL (< 200) H 12/03/16 05:43 LDL Cholesterol, Calc 107 mg/dL (0-99) H 12/03/16 05:43 VLDL Cholesterol, Calc 56 mg/dL (< 31) H 12/03/16 05:43 Ur Specific [place] 1.026 (1.010-1.025) H 12/03/16 03:50 Urine Glucose (UA) >=1000 mg/dL (Normal) H 12/03/16 03:50 All other labs normal. Consult Discharge Plan - Plan Referrals: NONE,PCP [Primary Care Provider] -
[2016-12-06 15:15] VITALS: BP 126/81
--- NOTE | 2016-12-06 16:09 | Discharge Summary ---
Date of Encounter: 12/06/16 Time of Encounter: 15:58 - Discharge Diagnosis (1) Left leg weakness Priority: Primary Status: Resolved (2) Foraminal stenosis of cervical region Priority: Secondary Status: Chronic (3) Essential hypertension Priority: Secondary Status: Chronic (4) Diabetes mellitus Priority: Secondary Status: Chronic Qualifiers: Diabetes mellitus type: type 2 Diabetes mellitus complication status: with unspecified complications Diabetes mellitus terminal block assembler insulin use: without terminal block assembler use Qualified Code(s): E11.8 - Type 2 diabetes mellitus with unspecified complications (5) Hyperlipidemia Priority: Secondary Status: Chronic Qualifiers: Hyperlipidemia type: unspecified Qualified Code(s): E78.5 - Hyperlipidemia , unspecified - Discharge Medications Prescriptions: Insulin Glargine,Hum.rec.anlog [Lantus Solostar] 25 unit SQ HS #1 insuln.pen Home Medications: Citalopram [CeleXA] 20 mg PO DAILY #30 tablet 09/05/15 [Rx] Aspirin 81 mg PO DAILY 07/16/16 [History] Atorvastatin [Lipitor] 40 mg PO HS 07/16/16 [History] Mv-Mn/FA/Vit K/Lycop/Lut/Coq10 [Daily Multivitamin Capsule] 1 each PO DAILY [History] Omeprazole [PriLOSEC] 20 mg PO DAILY 07/16/16 [History] Pioglitazone [Actos] 45 mg PO 0800 07/16/16 [History] amLODIPine [Norvasc] 5 mg PO DAILY 07/16/16 [History] glipiZIDE [Glipizide] 10 mg PO DAILY 07/16/16 [History] Cholecalciferol (Vitamin D3) [Vitamin D3] 5,000 unit PO BID 12/02/16 [History] [place]-3/Dha/Epa/Fish Oil [Fish Oil 1,000 mg Softgel] 1,000 mg PO DAILY 12/02/16 [History] hydrOXYzine pamoate [HydrOXYzine Pamoate] 25 mg PO DAILY 12/02/16 [History] Insulin Glargine,Hum.rec.anlog [Lantus Solostar] 25 unit SQ HS #1 insuln.pen 02/11 [Rx] Insulin LISPRO [HumaLOG] 0 units SQ TIDAC vial 12/06/16 [Rx] Lisinopril/Hydrochlorothiazide [Zestoretic 20-12.5 mg Tablet] 1 tab PO DAILY #0 12/06/16 [Rx] Allergies/Adverse Reactions: 3 Allergy/AdvReac Type Severity Reaction Status Date / Time No Known Allergies Allergy Verified 07/16/16 07:42 Procedures/tests Complete & Pending: Procedures Performed prior 72 hours Category Date Time Status MR cervical spine wo con [MR] Routine MRI 12/03/16 18:05 Completed MR lumbar spine wo con [MR] Routine MRI 12/04/16 13:39 Completed Date of admission: 12/03/16 10:49 Primary care physician: PCP NONE Consults: 12/02/16 16:50 Consult to Occupational Therapy [CONS] Routine Comment: Evaluate, develop and implement POC Reason for Consult: Acute left-sided weakness, ataxia Consult to Physical Therapy [CONS] Routine Comment: Evaluate, develop and implement POC Reason for Consult: Acute left-sided weakness, ataxia 12/02/16 16:51 Consult to Neurology [CONS] Routine Consulting Provider: Neurology [facility] Reason for Consult: Right arm paresthesias, left-sided weakness, ataxia, dizziness, superior gaze palsy, word finding difficulty Call Completed: Yes 12/03/16 15:39 Consult to Interventional Radiology [CONS] Stat Consulting Provider: Radiology Interventional [facility] Reason for Consult: Lumber puncture Call Completed: Yes 12/03/16 16:20 Consult to Candy Depositing Machine Operator [CONS] Routine Reason for SW Consult: PT recommending inpatient swing bed 12/04/16 12:50 Consult to Orthopedic Surgery [CONS] Routine Consulting Provider: Nick Davila Jr Reason for Consult: Spinal stenosis Call Completed: Yes - Patient Status Disposition: Home, Self-Care Condition: Good Overall status at discharge: patient is back to baseline - Discharge Instructions Follow Up With: NONE,PCP [Primary Care Provider] - Karen Forte DO [Partnered Physician] - - Diet and Activity Activity: as per physical therapy, increase activity as tolerated Diet: low salt diet Hospital course: Ms. Ruiz is a 61 year old female with history of hypertension and diabetes, remote history of Meniere's disease presents to emergency room at [facility] with complaints of dizziness for 2 days, worse since waking up this morning around 4: 30 AM. Patient did go to work but gradually also developed right arm pain and paresthesia with numbness and heaviness associated with gait ataxia and worsening dizziness. She subsequently presented to the emergency room where she also developed left-sided weakness in her upper and lower extremities, approximately around 8:30 AM on 12/02/16. She reports no headache, blurred vision, dysphagia but she does have intermittent word finding difficulty. She did mention that she went to [facility] a week ago, while she was there, she had 2 days of severe SOB, but denied any bug, tick bites / rash. Pt was admitted here with concerns of acute CVA. She was not a candidate for tPA due to prolonged duration since her symptoms developed and before she presented to our hospital. Her initial CT of head did not show any acute hemorrhage / infraction. She had MRI of brain done here which did not show any acute infractions. Next day when I saw her first time, her RUE weakness resolved , however still has mild weakness in LUE and Severe weakness in LLE. Pt was seen by neurologist, who recommend to continue current supportive care and symptomatic treatment. Also did MRI of Cervical, Lumbar spine which showed moderate foraminal stenosis on the right at C4-5 and multilevel degenerative changes. MRI of Lumbar spine showed mild multilevel degenerative changes. There is no significant stenosis. There is focal low density signals at L3 and L4 which may were represent lipid poor hemangiomas versus multiple myeloma versus metastatic disease. We were also concerned about any infectious etiology due to her recent visit to [facility]. However on MRI of brain, spine did not notice any lesions / granulomas. Also her symptoms started improving dramatically. Today she does not have any weakness, able to ambulated well with out any fall.. No gait abnormality noticed. Pt was evaluated by back surgeon Dr. Davila, who does not recommend any further work up other than out pt PT / OT for strength. Regarding her incidental finding of focal low density signals at L3 and L4 which may were represent lipid poor hemangiomas versus multiple myeloma versus metastatic disease. requested the pt to talk to PCP for Bone scan and SPEP for Myeloma work up. Also noticed she does have uncontrolled DM2 with HbA1C 12.0, she did have insulin at home but she is not using hem. So counseled to start taking her Lantus 25 U at bed time and Continue ISS too along with her home PO meds. Also placed a call to PCP to discuss about these instructions. - Time Spent with Patient Total time spent providing and/or coordinating discharge services: - Constitutional Vitals: Temp Pulse Resp BP Pulse Ox 98.4 F 74 16 126/81 99 12/06/16 15:10 12/06/16 15:10 12/06/16 15:10 12/06/16 15:10 12/06/16 15:10 General appearance: Present: A&O X 3, answers questions appropriately - Head Head exam: Present: atraumatic, normal inspection - Respiratory Respiratory exam: Present: CTAB. Absent: accessory muscle use, rales, rhonchi, wheezes - Cardiovascular Cardiovascular exam: Present: RRR, +S1, +S2. Absent: diastolic murmur, gallop, rubs, systolic murmur - GI/Abdominal GI/Abdominal exam: Present: normal bowel sounds, soft, no peritoneal signs. Absent: distended, tenderness - Extremities Exam Extremities exam: Absent: calf tenderness, pedal edema, tenderness - Neurological Exam Neurological exam: Present: alert, CN II-XII intact, normal gait, oriented X3, reflexes normal, no focal deficits, strengths equal and symetr throughout. Absent: motor sensory deficit, pronater drift, facial droop, speech deficit - Psychiatric Psychiatric exam: Present: normal affect, normal mood - VTE Documentation of Mechanical Device: Intermittent pneumatic compression device
== END 2016-12-06 17:21 | disposition home or self-care (01) | DRG 948 ==
LOC: 2NENU
PROVIDERS: ADMIT Internal Medicine; ATTEND Internal Medicine